=== PATIENT | male | born 1940 | race Caucasian/White ===

== ENCOUNTER 2024-06-01 10:05 | Emergency (ER) | payer OTHER, SELFPAY ==
--- NOTE | 2024-06-01 10:20 | ED.GENMED ---
ED Provider Triage
<Belinda Crain PA-C - Last Filed: 06/01/24 10:27>
-
Patient seen by provider in Triage?: Seen in Triage
Attestation: A medical screening examination has been initiated by a qualified medical provider. Based on the assessment performed at this time, it has been determined that an emergent medical condition may exist and the patient has been informed
that further medical evaluation and possible additional diagnostic testing may be needed.
HPI: 83yoM here with generalized weakness. Started with malaise since yesterday. States he has no strength in his legs starting last night. Multiple falls. Feels like he is dehydrated.
GENERAL: Alert , in no apparent distress
EYE: No visual abnormalities.
NECK: Trachea midline
ENT: No visible abnormalities.
LUNGS: No acute respiratory distress
NEUROLOGICAL: Alert and oriented
SKIN: Skin intact. No visible changes.
MUSCULOSKELETAL: Moving extremities normally
PSYCH: Normal and appropriate interaction.
This is a medical evaluation conducted in person to initiate diagnostic evaluation and provide initial therapeutics. Please see further documentation by the treating clinician.
CBC, CMP, EKG, and COVID/flu swab ordered.
History of Present Illness
<Belinda Crain PA-C - Last Filed: 06/01/24 10:27>
General
Chief Complaint: Weakness
Time Seen by Provider: 06/01/24 11:34
<Michelle Marroquin PA-C - Last Filed: 06/01/24 18:59>
General
Source: patient and spouse ( at bedside)
Exam Limitations: none
Nursing documentation reviewed up to this point in time: agreed with
History of Present Illness
History of Present Illness:
Patient is an 83 year old male with history of colon cancer s/p resection, GERD presenting to the emergency department for evaluation of lower extremity weakness. Patient states that yesterday evening prior to bed he felt asymmetric weakness in his
lower legs causing him to fall. This morning�he again noticed the weakness in the lower legs and sustained another fall. He denies any significant head strike or other injuries sustained during falls. Patient presents to the emergency department
for evaluation of weakness. Patient's states that he does not stay well-hydrated at home. Patient did have a glass of water this morning and states that he felt mild improvement following this.
Patient denies any associated fever, chills, chest pain, shortness of breath, dizziness, back pain, numbness/tingling, abdominal pain. Patient denies any urinary symptoms. Patient denies any recent bug bites or rashes.
Of note�patient did receive the first shingles vaccine 8 days ago.
No sick contacts. No recent travel.
Past History
<Belinda Crain PA-C - Last Filed: 06/01/24 10:27>
Past History
ED Past Medical History: Cancer (Basal cell), GERD and Other (Arthritis, enlarged prostate, Urinary retention, Sciatica); Negative Asthma, HTN, Hypercholesterolemia or NIDDM
ED Past Surgical History: Urological (TURP)
Social History
Tobacco: Former smoker
Alcohol: None
Personal:
Living: with family
Review of Systems
<Michelle Marroquin PA-C - Last Filed: 06/01/24 18:59>
Review of Systems
Allergies reviewed?: Yes
All Other Systems: ROS reviewed and negative except as documented in HPI and ROS
Phy Exam
<Michelle Marrqouin PA-C - Last Filed: 06/01/24 18:59>
Physical Exam
Physical Exam:
Vitals: Mildly hypertensive, otherwise vital signs stable. Afebrile
General: Patient is well appearing, no acute distress
Skin: Warm and dry, no rashes or lesions
Head: Normocephalic, atraumatic
Eyes: Sclera nonicteric. Pupils equal round and reactive to light bilaterally. No nystagmus.
Throat: Protecting airway
Neck: Normal ROM, no cervical spine tenderness, no meningismus
Cardiac: Regular rate and rhythm, no murmurs.
Pulm: Normal respiratory effort, no wheezes, rales, rhonchi heard on exam.
Abdomen: Abdomen soft. No abdominal tenderness. No CVA tenderness
Extremities: No evidence of cyanosis or edema. Great distal pulses
Neuro: AAOx3. CN II-XII intact. Sensation intact. Patellar reflexes 2+ bilaterally. Strength 5 out of 5 in upper and lower extremities. Speech fluid.
Psychiatric: Normal affect.
Course
<Belinda Crain PA-C - Last Filed: 06/01/24 10:27>
Orders/Labs/Results
Orders:
Orders
06/01/24 10:26
Electrocardiogram (*1) Urgent
Reason for Study: Fatigue / Weakness
EKG- Treatment ONCE
06/01/24 10:35
COVID-19 Antigen Urgent
Source: Nasal Swab
Complete Blood Count/With Diff Urgent
Comprehensive Metabolic Panel Urgent
Influenza A+B Rapid Molecular Urgent
NIK[place]AY Source: Nasal Swab
Specimen Description:
06/01/24 12:18
Urinalysis Reflex To Culture Urgent
Date Specimen was Collected: 06/01/24
Time Specimen was Collected: 12:17
Urine Microscopic Reflex Cult Urgent
06/01/24 12:19
0.9% Sodium Chloride 1000 ml [Nss] 1,000 ml IV BOLUS
06/01/24 12:35
CT Head W/o Iv Contrast Urgent
Comment:
Reason For Exam: lower extremity weakness, fall
06/01/24 13:00
CRP [C-Reactive Protein] Urgent
ESR [Erythrocyte Sed Rate] Urgent
Abnormal Lab Results
06/01/24 06/01/24 06/01/24
10:35 12:18 13:00
WBC 15.9 H 10^3/uL
(4.8-10.8)
RDW 15.3 H %
(11.5-14.5)
Abs Immat Gran (auto) 0.1 H 10^3/uL
(0-0.05)
Absolute Neuts (auto) 13.6 H 10^3/uL
(1.4-6.5)
Absolute Lymphs (auto) 0.7 L 10^3/uL
(1.2-3.4)
Absolute Monos (auto) 1.4 H 10^3/uL
(0.1-0.6)
Immature Gran % 0.7 H %
(0-0.5)
Neutrophils % 85.8 H %
(42.2-75.2)
Lymphocytes % 4.3 L %
(20.5-51.1)
ESR 39 H mm/hour
(0-20)
Sodium 134 L mmol/L
(135-145)
Chloride 93 L mmol/L
(98-107)
Carbon Dioxide 31 H mmol/L
(22-30)
Glucose 113 H mg/dl
(70-99)
Total Bilirubin 2.0 H mg/dl
(0.2-1.3)
AST 62 H U/L
(17-59)
Alkaline Phosphatase 151 H U/L
(38-126)
C-Reactive Protein 253.30 H mg/L
(0.0-10.00)
Urine Ketones 1+ A
(Negative)
Ur Occult Blood Reflex 2+ A
(Negative)
06/01/24 10:35
06/01/24 10:35
Vital Signs
Initial and Last Documented VS:
Initial Vital Signs
Temp Pulse Resp BP Pulse Ox
98.4 F 110 16 145/97 96
06/01/24 10:22 06/01/24 10:22 06/01/24 10:22 06/01/24 10:22 06/01/24 10:22
Last Documented Vital Signs
Temp Pulse Resp BP Pulse Ox
98.4 F 92 14 157/83 96
06/01/24 10:22 06/01/24 14:30 06/01/24 14:30 06/01/24 14:05 06/01/24 14:30
<Michelle Marroquin PA-C - Last Filed: 06/01/24 18:59>
Orders/Labs/Results
Orders:
Orders
06/01/24 10:26
Electrocardiogram (*1) Urgent
Reason for Study: Fatigue / Weakness
EKG- Treatment ONCE
06/01/24 10:35
COVID-19 Antigen Urgent
Source: Nasal Swab
Complete Blood Count/With Diff Urgent
Comprehensive Metabolic Panel Urgent
Influenza A+B Rapid Molecular Urgent
[place] Source: Nasal Swab
Specimen Description:
06/01/24 12:18
Urinalysis Reflex To Culture Urgent
Date Specimen was Collected: 06/01/24
Time Specimen was Collected: 12:17
Urine Microscopic Reflex Cult Urgent
06/01/24 12:19
0.9% Sodium Chloride 1000 ml [Nss] 1,000 ml IV BOLUS
06/01/24 12:35
CT Head W/o Iv Contrast Urgent
Comment:
Reason For Exam: lower extremity weakness, fall
06/01/24 13:00
CRP [C-Reactive Protein] Urgent
ESR [Erythrocyte Sed Rate] Urgent
Abnormal Lab Results
06/01/24 06/01/24 06/01/24
10:35 12:18 13:00
WBC 15.9 H 10^3/uL
(4.8-10.8)
RDW 15.3 H %
(11.5-14.5)
Abs Immat Gran (auto) 0.1 H 10^3/uL
(0-0.05)
Absolute Neuts (auto) 13.6 H 10^3/uL
(1.4-6.5)
Absolute Lymphs (auto) 0.7 L 10^3/uL
(1.2-3.4)
Absolute Monos (auto) 1.4 H 10^3/uL
(0.1-0.6)
Immature Gran % 0.7 H %
(0-0.5)
Neutrophils % 85.8 H %
(42.2-75.2)
Lymphocytes % 4.3 L %
(20.5-51.1)
ESR 39 H mm/hour
(0-20)
Sodium 134 L mmol/L
(135-145)
Chloride 93 L mmol/L
(98-107)
Carbon Dioxide 31 H mmol/L
(22-30)
Glucose 113 H mg/dl
(70-99)
Total Bilirubin 2.0 H mg/dl
(0.2-1.3)
AST 62 H U/L
(17-59)
Alkaline Phosphatase 151 H U/L
(38-126)
C-Reactive Protein 253.30 H mg/L
(0.0-10.00)
Urine Ketones 1+ A
(Negative)
Ur Occult Blood Reflex 2+ A
(Negative)
06/01/24 10:35
06/01/24 10:35
Vital Signs
Initial and Last Documented VS:
Initial Vital Signs
Temp Pulse Resp BP Pulse Ox
98.4 F 110 16 145/97 96
06/01/24 10:22 06/01/24 10:22 06/01/24 10:22 06/01/24 10:22 06/01/24 10:22
Last Documented Vital Signs
Temp Pulse Resp BP Pulse Ox
98.4 F 92 14 157/83 96
06/01/24 10:22 06/01/24 14:30 06/01/24 14:30 06/01/24 14:05 06/01/24 14:30
<Anders Ascencio, DO - Last Filed: 06/01/24 12:59>
Orders/Labs/Results
Orders:
Orders
06/01/24 10:26
Electrocardiogram (*1) Urgent
Reason for Study: Fatigue / Weakness
EKG- Treatment ONCE
06/01/24 10:35
COVID-19 Antigen Urgent
Source: Nasal Swab
Complete Blood Count/With Diff Urgent
Comprehensive Metabolic Panel Urgent
Influenza A+B Rapid Molecular Urgent
[place] Source: Nasal Swab
Specimen Description:
06/01/24 12:18
Urinalysis Reflex To Culture Urgent
Date Specimen was Collected: 06/01/24
Time Specimen was Collected: 12:17
Urine Microscopic Reflex Cult Urgent
06/01/24 12:19
0.9% Sodium Chloride 1000 ml [Nss] 1,000 ml IV BOLUS
06/01/24 12:35
CT Head W/o Iv Contrast Urgent
Comment:
Reason For Exam: lower extremity weakness, fall
06/01/24 13:00
CRP [C-Reactive Protein] Urgent
ESR [Erythrocyte Sed Rate] Urgent
Abnormal Lab Results
06/01/24 06/01/24 06/01/24
10:35 12:18 13:00
WBC 15.9 H 10^3/uL
(4.8-10.8)
RDW 15.3 H %
(11.5-14.5)
Abs Immat Gran (auto) 0.1 H 10^3/uL
(0-0.05)
Absolute Neuts (auto) 13.6 H 10^3/uL
(1.4-6.5)
Absolute Lymphs (auto) 0.7 L 10^3/uL
(1.2-3.4)
Absolute Monos (auto) 1.4 H 10^3/uL
(0.1-0.6)
Immature Gran % 0.7 H %
(0-0.5)
Neutrophils % 85.8 H %
(42.2-75.2)
Lymphocytes % 4.3 L %
(20.5-51.1)
ESR 39 H mm/hour
(0-20)
Sodium 134 L mmol/L
(135-145)
Chloride 93 L mmol/L
(98-107)
Carbon Dioxide 31 H mmol/L
(22-30)
Glucose 113 H mg/dl
(70-99)
Total Bilirubin 2.0 H mg/dl
(0.2-1.3)
AST 62 H U/L
(17-59)
Alkaline Phosphatase 151 H U/L
(38-126)
C-Reactive Protein 253.30 H mg/L
(0.0-10.00)
Urine Ketones 1+ A
(Negative)
Ur Occult Blood Reflex 2+ A
(Negative)
06/01/24 10:35
06/01/24 10:35
Vital Signs
Initial and Last Documented VS:
Initial Vital Signs
Temp Pulse Resp BP Pulse Ox
98.4 F 110 16 145/97 96
06/01/24 10:22 06/01/24 10:22 06/01/24 10:22 06/01/24 10:22 06/01/24 10:22
Last Documented Vital Signs
Temp Pulse Resp BP Pulse Ox
98.4 F 92 14 157/83 96
06/01/24 10:22 06/01/24 14:30 06/01/24 14:30 06/01/24 14:05 06/01/24 14:30
<Michelle Marroquin PA-C - Last Filed: 06/01/24 18:59>
MDM/Problems Addressed
Differential Diagnosis Includes:
Not limited to: UTI, viral illness, dehydration, reactive arthritis, Guillain-Ren�, etc.
MDM/Problems Addressed:
83-year-old male presenting with bilateral lower extremity weakness since yesterday evening. Patient did sustain a few falls due to weakness. No fevers, chills, headache/neck pain, chest pain, or shortness of breath. Patient has been able to
ambulate independently without ataxia. Patient did receive shingles vaccine last week. Mildly hypertensive, otherwise vital signs stable by my assessment. Exam as above. Patient has no focal neurologic deficits on exam. He has fluid speech. On
my assessment�5 out of 5 strength in upper and lower extremities. Sensation is fully intact. Patellar reflexes elicited. EKG obtained in triage without acute ischemic changes. Will check labs, urine. Will check viral swabs. Given recent
falls/weakness�will obtain head CT. Did add on inflammatory markers, as well. Unknown etiology at this time other considerations include dehydration, viral illness, UTI, symptoms secondary to postvaccination. Will closely monitor and reassess.
Chronic conditions affecting care:
N/A
Acute Exacerbation and/or Progression of Chronic Illness:
N/A
<Michelle Marroquin PA-C - Last Filed: 06/01/24 18:59>
*Radiology
Radiology exam reviewed: preliminary read by ED provider and radiology read reviewed
*Pulse Oximetry
Patient hypoxic: no
*EKG
Interpreted by ED Provider?: Yes
EKG Intrepretation Date: 06/01/24
Interpretation: abnormal
Comparison EKG: changes noted
Heart Rate: 100
Rate: normal
Rhythm: sinus
[place]: left axis deviation
Interval: normal interval
QRS Pattern: normal QRS
Ischemia: no ischemia
*[facility] Interpretation
Rate: normal
Interpretation: normal
Heart Rate: 96
Rhythm: sinus
*Critical Care Note
Total Time (30-74mins, 75-104mins- exclusive of procedures): Not Applicable
<Michelle Marroquin PA-C - Last Filed: 06/01/24 18:59>
Update Note
Update Note:
Update: Patient reports significant improvement in symptoms following liter of fluids. He has ambulated to and from bathroom multiple times without any weakness/ataxia. Labs noted. He does have a leukocytosis and elevation in inflammatory
markers. Mild elevation in bilirubin to 2 although he does not have any abdominal tenderness. Urine shows no evidence of infection. Viral swabs negative. Head CT without acute abnormalities. Do suspect that dehydration was contributing factor
to symptoms. Leukocytosis and elevation of inflammatory markers likely secondary to recent vaccination. Patient was offered admission for observation although he is adamant that he would like to go home and is feeling better. Return precautions
discussed at length with patient. Patient seen with attending physician.
ED Attending Note
<Belinda Crain PA-C - Last Filed: 06/01/24 10:27>
-
Portions of this chart may have been created with voice recognition software.� Occasional wrong word or��sound alike� substitutions may have occurred due to the inherent limitations of voice recognition software.
<Anders Ascencio DO - Last Filed: 06/01/24 12:59>
ED Attending Note
Patient seen and examined by attending physician: Yes
I performed a history and physical exam of patient and discussed management with resident, I reviewed resident's note and agree with documented findings and plan of care.: Yes
ED Attending Note:
I have reviewed and agree with history and treatment plan by Michelle Leyva. My exam revealed
Physical Exam
General: no apparent distress, not acutely ill
Neck: supple. no meningeal signs. normal posterior pharynx
Heart: s1/s2 regular rate and rhythm, no murmur. equal radial
pulses.
HEENT: Pupils equal round reactive to light, EOMI
Lungs: no acute respiratory distress. clear bilaterally
Abdomen: normal bowel sounds. not tender. no CVAT
Neuro: alert and oriented. no focal neurological deficits cranial nerves II through XII intact
Skin: no rash
Psychiatric: well kept. interactive and cooperative
Extremities: no edema. no calf tenderness. negative homans. good distal pulses
Suspect reaction from vaccine versus hypovolemia. Patient feels improved, no neurologic deficits. Stable for discharge.
Discharge Plan
Departure
Patient Disposition: Home (Routine Discharge)
Date of Disposition: 06/01/24
Time of Disposition: 14:13
Patient with high blood pressure during this ER visit?: Yes
Condition: Good
Covid-19: Not Applicable
Discharge Problem:
Weakness, Acute dehydration
Instructions: Dehydration, Adult ED, Weakness ED
Prescriptions:
No Action
methylprednisolone 4 MG tablet
4 mg PO DAILY
gabapentin 300 MG capsule
300 mg PO BID
therapeutic multivitamin Tablet
1 tab PO DAILY Qty: 0
vitamin E (dl, acetate) 400 UNITS capsule
400 units PO DAILY
cholecalciferol (vitamin D3) [Vitamin D3] 25 MCG capsule
25 mcg PO DAILY
calcium carbonate-vitamin D3 1 EACH tablet
1 ea PO DAILY
ondansetron HCl 8 mg Tablet
8 mg PO TID
omeprazole 40 mg Capsule,Delayed Release(Dr/Ec)
40 mg PO BID
alendronate [Fosamax] 70 mg Tablet
70 mg PO QWEEK
cyanocobalamin (vitamin B-12) 1,000 mcg Tablet
1,000 mcg PO DAILY
ferrous sulfate 325 mg (65 mg iron) Tablet
325 mg PO DAILY
Eliquis 5 mg tablet
5 mg PO BID Qty: 60 0RF
Rx Instructions:
10 mg twice daily for 7 days and then 5 mg twice daily
Referrals:
Mathew Hdz, DO [Family Provider] - Follow up in 2-3 days
Activity Restrictions/Additional Instructions:
RETURN TO THE EMERGENCY DEPARTMENT WITH ANY FEVERS, HEADACHE, PERSISTENT/WORSENING WEAKNESS, SIGNS OF SEVERE DEHYDRATION, INABILITY TO PRODUCE URINE, ANY SIGNS OF INFECTION, OR ANY OTHER CONCERNS
-As discussed/it is important to stay very well-hydrated. You should take it easy over the next few days. If symptoms persist/worsen return to the emergency department.
-Monitor closely for any signs of infection.
-Follow-up with your PCP for further evaluation/management
Monitor your symptoms closely and return to the emergency department with any acute worsening/new symptoms
Interventions
Interventions:
*Risk Screen - Suicide Last Done: 06/01/24 10:22
*General Assessment Last Done: 06/01/24 10:22
*Neglect/Abuse Screening Last Done: 06/01/24 10:22
ED- Fall Risk Assessment Last Done: 06/01/24 11:35
*ED COVID-19 Vaccine History Last Done: 06/01/24 11:35
*Nursing Disposition Last Done: 06/01/24 14:55
ED- Cardiac Assessment Last Done: 06/01/24 11:35
ED- Neurological Assessment Last Done: 06/01/24 11:35
ED- Pulmonary Assessment Last Done: 06/01/24 11:35
Discharge Date and Time
Discharge Date/Time: 06/01/24 14:55
Print Language: SYRIAC
[2024-06-01 10:22] VITALS: BP 145/97
[2024-06-01 10:51] LABS: % Basophils 0.6 % (0-2); % Eosinophils 0.1 % (0-6); % Immature Granulocytes 0.7 % (0-0.5); % Lymphocytes 4.3 % (20.5-51.1); % Monocytes 8.5 % (1.7-9.3); % Neutrophils 85.8 % (42.2-75.2); Absolute Basophils 0.1 10^3/uL (0-0.2); Absolute Immature Granulocytes 0.1 10^3/uL (0-0.05); Absolute Lymphocytes 0.7 10^3/uL (1.2-3.4); Absolute Monocytes 1.4 10^3/uL (0.1-0.6); Absolute Neutrophils 13.6 10^3/uL (1.4-6.5); Hematocrit 44.1 % (39.0-52.0); Hemoglobin 14.6 g/dL (13.0-18.0); Mean Corp Hgb Conc. 33.1 g/dL (33.0-37.0); Mean Corpuscular Hgb 28.7 pg (27.0-31.0); Mean Corpuscular Volume 86.6 fL (80.0-94.0); Mean Platelet Volume 9.5 fL (7.4-10.4); Nucleated Red Blood Cells % 0 % (-); Platelet Count 278 10^3/uL (130-400); Red Blood Cell Count 5.09 10^6/uL (4.70-6.10); Red Cell Dist. Width 15.3 % (11.5-14.5); White Blood Cell Count 15.9 10^3/uL (4.8-10.8)
[2024-06-01 11:01] LABS: COVID-19 Antigen Negative (Negative)
[2024-06-01 11:03] LABS: ALT (SGPT) 22 U/L (0-50); AST (SGOT) 62 U/L (17-59); Albumin 3.9 g/dl (3.5-5.0); Alkaline Phosphatase 151 U/L (38-126); Blood Urea Nitrogen 18 mg/dl (9-20); Calcium 9.8 mg/dl (8.4-10.2); Carbon Dioxide 31 mmol/L (22-30); Chloride 93 mmol/L (98-107); Glucose 113 mg/dl (70-99); Potassium 4.4 mmol/L (3.5-5.1); Sodium 134 mmol/L (135-145); Total Protein 6.6 g/dl (6.3-8.2); eGFR > 60.00
[2024-06-01 11:35] VITALS: BMI 21.5
[2024-06-01 11:43] VITALS: BP 137/92
[2024-06-01 12:00] VITALS: BP 136/78
[2024-06-01] MEDS: NSS 1000 IV (12:31)
[2024-06-01 12:46] LABS: Urine Albumin Trace (Neg - Trace); Urine Bilirubin Negative (Negative); Urine Character Clear (Clear); Urine Color Yellow; Urine Glucose Negative (Negative); Urine Ketone 1+ (Negative); Urine Leukocyte Negative (Negative); Urine Nitrite Negative (Negative); Urine Occult Blood 2+ (Negative); Urine Urobilinogen Negative (Neg - 1+)
[2024-06-01 13:01] VITALS: BP 179/83
[2024-06-01 13:40] LABS: Urine Mucus Moderate
[2024-06-01 13:41] LABS: Urine Amorphous Seen; Urine Red Blood Cell 0-2 /HPF (0-2); Urine Squamous Cell 0-2 /LPF (Few); Urine White Cell 0-2 /HPF (0-5)
[2024-06-01 14:02] LABS: Erythrocyte Sed Rate 39 mm/hour (0-20)
[2024-06-01 14:05] VITALS: BP 157/83
== END 2024-06-01 14:55 | disposition home or self-care (01) ==
LOC: EMR 10:05
PROVIDERS: Physician Assistant; EMERGENCY PHYSICIAN Emergency Medicine; FAMILY PHYSICIAN Family Medicine
DX: E86.0 Dehydration (principal); K21.9 Gastro-esophageal reflux disease without esophagitis; Z85.038 Personal history of other malignant neoplasm of large intestine; Z87.891 Personal history of nicotine dependence
CPT/HCPCS: 96360; 99284; 70450; 80053; 81003; 81015; 85025; 85652; 86140; 87502; 87811; 93005

== ENCOUNTER → 2024-10-15 10:25 | Outpatient (REF) | payer OTHER, SELFPAY ==
[2024-10-15 11:34] LABS: % Basophils 0.8 % (0-2); % Eosinophils 0.7 % (0-6); % Immature Granulocytes 0.4 % (0-0.5); % Lymphocytes 4.9 % (20.5-51.1); % Monocytes 5.2 % (1.7-9.3); Absolute Basophils 0.1 10^3/uL (0-0.2); Absolute Eosinophils 0.1 10^3/uL (0-0.7); Absolute Immature Granulocytes 0.1 10^3/uL (0-0.05); Absolute Lymphocytes 0.6 10^3/uL (1.2-3.4); Absolute Monocytes 0.6 10^3/uL (0.1-0.6); Hematocrit 40.1 % (39.0-52.0); Mean Corp Hgb Conc. 32.4 g/dL (33.0-37.0); Mean Corpuscular Hgb 27.1 pg (27.0-31.0); Mean Corpuscular Volume 83.7 fL (80.0-94.0); Mean Platelet Volume 9.5 fL (7.4-10.4); Nucleated Red Blood Cells % 0 % (-); Platelet Count 521 10^3/uL (130-400); Red Blood Cell Count 4.79 10^6/uL (4.70-6.10); Red Cell Dist. Width 16.2 % (11.5-14.5); White Blood Cell Count 11.4 10^3/uL (4.8-10.8)
[2024-10-15 12:03] LABS: ALT (SGPT) 28 U/L (0-50); AST (SGOT) 87 U/L (17-59); Albumin 3.4 g/dl (3.5-5.0); Alkaline Phosphatase 475 U/L (38-126); Blood Urea Nitrogen 10 mg/dl (9-20); Calcium 9.8 mg/dl (8.4-10.2); Carbon Dioxide 29 mmol/L (22-30); Chloride 93 mmol/L (98-107); Glucose 102 mg/dl (70-99); Potassium 5.1 mmol/L (3.5-5.1); Sodium 130 mmol/L (135-145); Total Bilirubin 1.4 mg/dl (0.2-1.3); Total Protein 6.2 g/dl (6.3-8.2); eGFR > 60.00
[2024-10-15 12:32] LABS: CEA 65.6 ng/ml
== END ==
LOC: REG 10:25
PROVIDERS: ATTENDING PHYSICIAN Surgery
DX: C18.0 Malignant neoplasm of cecum (principal)
CPT/HCPCS: 36415; 80053; 82378; 85025

== ENCOUNTER → 2024-10-19 07:06 | Outpatient (REF) | payer OTHER, SELFPAY | LOC: RAD 07:06 | PROVIDERS: ATTENDING PHYSICIAN Surgery; FAMILY PHYSICIAN Family Medicine | DX: C18.0 Malignant neoplasm of cecum (principal) | CPT/HCPCS: 71260; 74177; Q9967 ==